=== PATIENT | male | born 1985 | race Caucasian/White ===

== ENCOUNTER 2016-07-01 10:12 | Emergency (ER) | payer MEDICAID, OTHER ==
[~2016-07-01] VITALS: Ht 172.7 cm; Wt 65.8 kg
[~2016-07-01 10:12] MED LIST: ALPR2TAB2 PO; CLON0.5T PO; VENL150C2 PO
[2016-07-01 10:15] VITALS: BP 121/71
[2016-07-01] MEDS ORDERED: ALPRAZOLAM 0.5 MG TABLET ONE (10:30)
[2016-07-01] MEDS ORDERED: ALPRAZOLAM 0.5 MG TABLET PO ONE (10:30)
== END 2016-07-01 10:36 | disposition home or self-care (01) ==
LOC: ER 10:13
DX: F41.9 Anxiety disorder, unspecified (principal); F32.9 Major depressive disorder, single episode, unspecified; Z59.0 Homelessness; M86.60 Other chronic osteomyelitis, unspecified site; F17.200 Nicotine dependence, unspecified, uncomplicated
CPT/HCPCS: 99284; A4606; Z7610

== ENCOUNTER 2016-07-23 16:30 | Emergency (ER) | payer OTHER ==
[~2016-07-23] VITALS: Ht 177.8 cm; Wt 77.1 kg
[2016-07-23 16:43] VITALS: BP 123/96
[2016-07-23] MEDS ORDERED: ALPRAZOLAM 0.5 MG TABLET ONE ×2 (16:52→16:53)
[2016-07-23] MEDS ORDERED: ALPRAZOLAM 0.5 MG TABLET PO ONE (17:00)
== END 2016-07-23 17:06 | disposition home or self-care (01) ==
LOC: ER 16:31
DX: F41.9 Anxiety disorder, unspecified (principal); F32.9 Major depressive disorder, single episode, unspecified; F17.210 Nicotine dependence, cigarettes, uncomplicated; F31.9 Bipolar disorder, unspecified; Z59.0 Homelessness; Z76.0 Encounter for issue of repeat prescription
CPT/HCPCS: 99284; A4606; Z7610

== ENCOUNTER 2016-08-20 22:02 | Emergency (ER) | payer OTHER ==
--- NOTE | 2016-08-20 22:21 | NUR ---
CALLED FOR TRIAGE. STATES "I WILL F/U WITH MY DOCTOR". DENIES ANY CP/SOB/N/V OR ANY OTHER ACUTE SX'S.
== END 2016-08-20 22:23 | disposition left against medical advice (07) ==
LOC: ER 22:02
DX: Z53.21 Procedure and treatment not carried out due to patient leaving prior to being seen by health care provider (principal)

== ENCOUNTER 2021-11-18 17:10 | Emergency (ER) | payer OTHER ==
[~2021-11-18] VITALS: Ht 167.6 cm; Wt 65.8 kg
--- NOTE | 2021-11-18 17:23 | NUR ---
DR TIRADO AT BEDSIDE FOR EVAL
[2021-11-18] MEDS ORDERED: LORAZEPAM INJ 2 MG/ML VIAL IV ONE (17:30)
[2021-11-18] MEDS ORDERED: IV NS 0.9% 1,000 ML BAG IV ONE (17:30)
[2021-11-18] MEDS ORDERED: IV NS 0.9% 1,000 ML IV ONE (17:30)
[2021-11-18] MEDS ORDERED: LORAZEPAM INJ 2 MG/ML VIAL ONE (17:40)
[2021-11-18 17:54] LABS: BASOPHILS % (AUTO) 0.3 % (0.0-2.0); EOSINOPHILS % (AUTO) 0.2 % (0.0-6.0); HEMATOCRIT 40 % (39-51); HEMOGLOBIN 13.2 g/dL (13.5-17.5); LYMPHOCYTES # (AUTO) 1.4 K/uL (0.8-4.8); LYMPHOCYTES % (AUTO) 9.9 % (20.0-44.0); MEAN CORPUSCULAR HGB CONC 33 g/dl (31.0-36.0); MEAN CORPUSCULAR VOLUME 86 fL (80-96); MONOCYTES # (AUTO) 0.4 K/uL (0.1-1.30); NEUTROPHILS # (AUTO) 12.3 K/uL (1.8-8.9); NEUTROPHILS % (AUTO) 86.6 % (43.0-81.0); PLATELET COUNT (AUTO) 399 K/uL (150-450); RED BLOOD CELL COUNT(AUTO) 4.66 MIL/uL (4.5-6.0); WHITE BLOOD COUNT (AUTO) 14.2 K/uL (4.3-11.0)
[2021-11-18 18:08] LABS: CREATINE KINASE, TOTAL 939 U/L (39-308)
[2021-11-18 18:09] LABS: ALANINE AMINOTRANSFERASE 49 U/L (12-78); ALBUMIN 4.2 g/dL (3.4-5.0); ALCOHOL, BLOOD < 3 mg/dL (0-0); ALKALINE PHOSPHATASE 109 U/L (46-116); ASPARTATE AMINOTRANSFERASE 48 U/L (15-37); BILIRUBIN,DIRECT 0.2 mg/dL (0.0-0.2); BILIRUBIN,TOTAL 0.7 mg/dL (0.2-1.0); CALCIUM, SERUM 9.6 mg/dL (8.5-10.1); CARBON DIOXIDE 29 mmol/L (21-32); CHLORIDE 101 mmol/L (98-107); CREATININE 1.4 mg/dL (0.6-1.3); GLUCOSE 95 mg/dL (74-106); POTASSIUM 4.1 mmol/L (3.5-5.1); SODIUM SERUM 141 mmol/L (136-145); TOTAL PROTEIN, SERUM 9.2 g/dL (6.4-8.2); UREA NITROGEN, BLOOD 17 mg/dL (7-18)
--- NOTE | 2021-11-18 18:17 | NUR ---
URINE SAMPLE COLLECTED AND SENT TO LAB
--- NOTE | 2021-11-18 18:40 | NUR ---
PT BACK FROM RADIOLOGY
[2021-11-18 18:47] LABS: BILIRUBIN,URINE NEGATIVE (NEGATIVE); COLOR,URINE YELLOW (YELLOW); LEUKOCYTE ESTERASE ,URINE SMALL (NEGATIVE); NITRITE, URINE NEGATIVE (NEGATIVE); PROTEIN,URINE 100 mg/dl (NEGATIVE); UGLUCOSE NEGATIVE (NEGATIVE); UROBILINOGEN,URINE 0.2 EU/dL (0.2)
--- NOTE | 2021-11-18 18:48 | NUR ---
DINNER TRAY PROVIDED, JAMES WELL
[2021-11-18 18:52] LABS: WBC,URINE 21-50 /HPF (0-3)
[2021-11-18 18:53] LABS: BACTERIA,URINE 2+ /HPF (None Seen); SPERM,URINE Few /HPF (None Seen)
[2021-11-18 18:55] VITALS: BP 114/71
--- NOTE | 2021-11-18 20:11 | NUR ---
Patient eloped from facility. ER MD Perkins notified. Pt ambulatory with a steady gait
== END 2021-11-18 20:11 | disposition left against medical advice (07) ==
LOC: ER 17:13
DX: F15.10 Other stimulant abuse, uncomplicated (principal); N39.0 Urinary tract infection, site not specified; R41.82 Altered mental status, unspecified; F41.9 Anxiety disorder, unspecified; F32.A Depression, unspecified; Z98.890 Other specified postprocedural states; Z59.00 Homelessness unspecified; Z79.899 Other long term (current) drug therapy
CPT/HCPCS: 99285; 96374; 96361; 93005; 71045; 72125; 70450; 85025; 80048; 82550; 87086; 80076; 81001; 36415; 82553; 80143; 80320; 80307; J2060; J7030 ×2; G0480

== ENCOUNTER 2023-01-01 05:30 | Emergency (ER) | payer OTHER ==
[~2023-01-01] VITALS: Ht 177.8 cm; Wt 74.8 kg
[~2023-01-01 05:30] MED LIST changes: +NALO4SPR BNOSTRILS
[2023-01-01 05:32] VITALS: BP 119/69; TEMP 99.4; O2SAT 96
== END 2023-01-01 06:25 | disposition left against medical advice (07) ==
LOC: ER 05:33
DX: F11.90 Opioid use, unspecified, uncomplicated (principal)

== ENCOUNTER 2023-03-11 13:31 | Emergency (ER) | payer OTHER ==
[~2023-03-11] VITALS: Ht 177.8 cm; Wt 74.8 kg
[2023-03-11 13:40] VITALS: TEMP 98.2
[2023-03-11 14:01] LABS: BASOPHILS # (AUTO) 0.2 K/uL (0.0-0.2); BASOPHILS % (AUTO) 3.1 % (0.0-2.0); EOSINOPHILS % (AUTO) 0.5 % (0.0-6.0); HEMATOCRIT 37 % (39-51); LYMPHOCYTES # (AUTO) 0.7 K/uL (0.8-4.8); LYMPHOCYTES % (AUTO) 11.6 % (20.0-44.0); MEAN CORPUSCULAR HEMOGLOBIN 27 PG (26.0-33.0); MEAN CORPUSCULAR HGB CONC 33 g/dl (31.0-36.0); MEAN CORPUSCULAR VOLUME 84 fL (80-96); MONOCYTES # (AUTO) 0.3 K/uL (0.1-1.30); MONOCYTES % (AUTO) 4.9 % (2.0-12.0); NEUTROPHILS # (AUTO) 4.9 K/uL (1.8-8.9); NEUTROPHILS % (AUTO) 79.9 % (43.0-81.0); PLATELET COUNT (AUTO) 393 K/uL (150-450); RED BLOOD CELL COUNT(AUTO) 4.42 MIL/uL (4.5-6.0); RED CELL DISTRIBUTION WIDTH 16.6 % (11.5-15.0); WHITE BLOOD COUNT (AUTO) 6.2 K/uL (4.3-11.0)
[2023-03-11 14:19] LABS: ALANINE AMINOTRANSFERASE 38 U/L (12-78); ALBUMIN 3.4 g/dL (3.4-5.0); ALKALINE PHOSPHATASE 90 U/L (46-116); ASPARTATE AMINOTRANSFERASE 24 U/L (15-37); BILIRUBIN,TOTAL 0.2 mg/dL (0.2-1.0); CALCIUM, SERUM 9.1 mg/dL (8.5-10.1); CARBON DIOXIDE 27 mmol/L (21-32); CHLORIDE 102 mmol/L (98-107); CREATININE 0.8 mg/dL (0.6-1.3); GLUCOSE 104 mg/dL (74-106); POTASSIUM 3.9 mmol/L (3.5-5.1); SODIUM SERUM 138 mmol/L (136-145); TOTAL PROTEIN, SERUM 8.1 g/dL (6.4-8.2); UREA NITROGEN, BLOOD 14 mg/dL (7-18)
[2023-03-11 14:30] LABS: SALICYLATE 0.6 mg/dL (2.8-20.0)
[2023-03-11 14:46] LABS: ACETAMINOPHEN <10 ug/ml (10-30); ALCOHOL, BLOOD < 3 mg/dL (0-10)
[2023-03-11] MEDS ORDERED: LORAZEPAM 1 MG TABLET ONE (14:48)
[2023-03-11] MEDS: LORAZEPAM 0.5 MG TABLET PO ONE (14:53)
[2023-03-11 15:29] LABS: APPEARANCE,URINE CLEAR (CLEAR); BILIRUBIN,URINE NEGATIVE (NEGATIVE); BLOOD, URINE NEGATIVE Ery/uL (NEGATIVE); COLOR,URINE YELLOW (YELLOW); KETONES,URINE NEGATIVE (NEGATIVE); LEUKOCYTE ESTERASE ,URINE NEGATIVE (NEGATIVE); NITRITE, URINE NEGATIVE (NEGATIVE); PH,URINE 6.5 (5.0-8.0); PROTEIN,URINE TRACE mg/dl (NEGATIVE); UGLUCOSE NEGATIVE (NEGATIVE); UROBILINOGEN,URINE 0.2 EU/dL (0.2)
[2023-03-11 15:54] LABS: BARBITURATE, URINE NEGATIVE (NEGATIVE); BENZODIAZEPINE, URINE NEGATIVE (NEGATIVE); CANNABINOID, URINE NEGATIVE (NEGATIVE); OPIATE, URINE NEGATIVE (NEGATIVE); PHENCYCLIDINE SCREEN,URINE NEGATIVE (NEGATIVE)
[2023-03-11 16:06] LABS: ADD URINE CULTURE NO; BACTERIA,URINE None seen /HPF (None Seen); MUCUS,URINE Few /LPF (None Seen); RBC,URINE NONE SEEN /HPF (0-2); SQUAMOUS EPITHELIAL CELL,UR None Seen /HPF (None Seen); WBC,URINE NONE SEEN /HPF (0-3)
[2023-03-11 16:16] LABS: AMPHETAMINE, URINE POSITIVE (NEGATIVE); COCCAINE, URINE POSITIVE (NEGATIVE)
[2023-03-11] MEDS ORDERED: BUPRENORPHINE HCL 8 MG TAB.SUBL SL ONE (22:28)
[2023-03-11] MEDS: BUPRENORPHINE HCL 2 MG TAB.SUBL SL ONE (22:31)
[2023-03-11 22:32] VITALS: BP 124/90; O2SAT 98
== END 2023-03-11 23:00 ==
LOC: ER 13:35
DX: R45.851 Suicidal ideations (principal); F19.10 Other psychoactive substance abuse, uncomplicated; F41.9 Anxiety disorder, unspecified; F31.9 Bipolar disorder, unspecified; F17.200 Nicotine dependence, unspecified, uncomplicated; Z88.6 Allergy status to analgesic agent; Z20.822 Contact with and (suspected) exposure to COVID-19
CPT/HCPCS: 99285; 85025; 80048; 80076; 81001; 36415; 87426; 80143; 80320; 80307; C9803; G0480

== ENCOUNTER 2024-11-23 01:13 | Emergency (ER) | payer OTHER | END 2024-11-23 02:48 | disposition left against medical advice (07) | LOC: ER 01:15 | DX: Z53.21 Procedure and treatment not carried out due to patient leaving prior to being seen by health care provider (principal) ==